=== PATIENT | female | born 1965 | race Caucasian/White ===

== ENCOUNTER → 2018-05-15 10:07 | Outpatient (CLI) | payer MEDICARE, SELFPAY ==
--- NOTE | 2018-05-15 10:10 | MM_ITS ---
MM Dig screening mamm BI w/CAD CAD Screening COMPARISON: Digital mammograms with CAD 09/08/2015 and 08/26/2014 INDICATION: There is a history of breast cancer patient maternal aunt. TECHNIQUE: Standard CC and MLO images were obtained. R2 CAD reviewed. FINDINGS: Mild to moderate fibroglandular densities are seen in the central portions of both breasts and the findings are bilateral and symmetrical. There is minimal focal arterial calcification left breast. There is no suspicious lesion and there are no suspicious microcalcifications. There is a stable tiny nodular benign-appearing density near the axillary tail right breast. IMPRESSION: Fibrofatty parenchyma with no suspicious lesion seen BI-RADS Category: 2 Benign Finding(s) RECOMMENDED FOLLOW-UP: 1YR - 1 YEAR FOLLOW-UP (A letter has been sent to the patient regarding results of the study.)
== END ==
PROVIDERS: PCP Obstetrics & Gynecology; Visit Provider Obstetrics & Gynecology
DX: Z12.31 Encounter for screening mammogram for malignant neoplasm of breast (principal)
CPT/HCPCS: 77067

== ENCOUNTER → 2018-11-27 15:23 | Outpatient (CLI) | payer MEDICARE, SELFPAY ==
--- NOTE | 2018-11-27 15:31 | US_ITS ---
US transvaginal HISTORY: ITS.REASON: POSTMENOPAUSAL BLEEDING ORDERING PHYSICIAN: Luca Butterfield MD PATIENT AGE: 53 years Comparison: None FINDINGS: There is been a prior hysterectomy. There is a small cyst measuring 8 x 5 mm in the region of the vaginal cuff. No pelvic mass or adnexal mass or pelvic fluid collection evident. IMPRESSION: Small cyst in the vaginal cuff otherwise negative pelvic ultrasound status post complete hysterectomy
== END ==
PROVIDERS: PCP Family Medicine; Visit Provider Obstetrics & Gynecology
DX: N95.0 Postmenopausal bleeding (principal)
CPT/HCPCS: 76830

== ENCOUNTER → 2018-12-11 14:46 | Outpatient (CLI) | payer MEDICARE, SELFPAY ==
--- NOTE | 2018-12-11 | ECG_ITS ---
APPROVED REPORT Exam: Resting ECG HR:58 bpm ECG Measurements Heart Rate 58 AXES FL 150 P 60 QRSd 88 QRS 64 QT 440 T 43 QTc 431 <Conclusion> Sinus bradycardia ST abnormality, ? electrolyte disturbance Abnormal ECG Electronically signed by : Yuri Manjarrez, 12/12/2018 17:40:32
[2018-12-11 14:51] LABS: Microscopic, Urine URINE MICROSCOPIC (MICROSCOPIC)
--- NOTE | 2018-12-11 15:07 | XR_ITS ---
PROCEDURE: XR CHEST 2V CLINICAL HISTORY: HTN,SPASMS Hypertension COMPARISON: No exams were available for comparison FINDINGS: The cardiomediastinal silhouette and pulmonary vascularity are within normal limits. The lungs are clear without infiltrates, suspicious nodules, or pleural effusions. There is a mild pectus deformity with some obscuration of the right heart border IMPRESSION: No acute findings. Dictated by: Phil Sumner MD 12/11/2018 15:20 Signed by: <Electronically signed by Phil Sumner MD in [place]> 12/11/2018 15:20
[2018-12-11 15:17] LABS: Basophils % 0.1 % (0.1-2.0); Eosinophils # 0.1 K/mm3 (0.0-0.4); Hematocrit 44.2 % (37.0-47.0); Hemoglobin 14.5 g/dL (12.2-16.2); Lymphocytes # 1.6 K/mm3 (0.7-4.5); Lymphocytes % 26.5 % (10-50); Mean Corpuscular HGB Conc 32.9 g/dL (31.8-35.4); Mean Corpuscular Hemoglobin 25.4 pg (27.0-31.2); Mean Corpuscular Volume 77.1 fl (81-99); Monocytes # 0.3 K/mm3 (0.1-1.0); Monocytes % 5.2 % (1.7-9.3); Neutrophils # 4.1 K/mm3 (1.8-7.8); Neutrophils % 67.2 % (37.0-80.0); Platelet Count 301 K/mm3 (142-424); Red Blood Count 5.73 M/mm3 (4.20-5.40); Red Cell Distribution Width 14.2 % (11.5-17.5); White Blood Count 6.2 K/mm3 (4.8-10.8)
[2018-12-11 15:40] LABS: Appearance,Urine CLEAR (Clear); Bilirubin,Urine Negative (Negative); Blood, Urine 2+ (Negative); Color,Urine YELLOW (Yellow); Glucose,Urine (UA) Negative (Negative); Ketones,Urine Negative (Negative); Leukocyte Esterase,Urine 2+ (Negative); Nitrate,Urine Negative (Negative); PH,Urine 7.5 (5.0-8.5); Protein,Urine Negative (Negative)
[2018-12-11 15:58] LABS: RBC,Urine Occasional #/hpf (0-3)
[2018-12-11 16:00] LABS: Bacteria,Urine Trace /lpf
[2018-12-11 17:36] LABS: Alanine Aminotransferase 20 U/L (12-78); Albumin Level 4.3 gm/dL (3.4-5.0); Albumin/Globulin Ratio 1.7 (1.1-1.8); Alkaline Phosphatase 98 U/L (46-116); Anion Gap 7.7 mEq/L (5-15); Aspartate Amino Transferase 19 U/L (15-37); Bilirubin,Total 0.5 mg/dL (0.2-1.0); Blood Urea Nitrogen 17 mg/dL (7-18); Calcium 9.2 mg/dL (8.5-10.1); Carbon Dioxide 31 mmol/L (21.0-32.0); Chloride 102 mmol/L (98-107); Creatinine,Serum 0.93 mg/dL (0.55-1.02); Estimated Glomerular Filt Rate 64 ml/min (>60); GFR (African American) 77 ML/MIN (>60); Globulin 2.5 gm/dl (1.3-3.2); Glucose 87 mg/dL (74-106); Sodium 138 mmol/L (136-145); Total Protein,Serum 6.8 gm/dL (6.4-8.2)
[2018-12-11 17:44] LABS: Potassium 2.7 mmoL/L (3.5-5.1)
== END ==
PROVIDERS: Visit Provider Obstetrics & Gynecology
DX: Z01.818 Encounter for other preprocedural examination (principal); N80.9 Endometriosis, unspecified; R82.90 Unspecified abnormal findings in urine
CPT/HCPCS: 36415; 71046; 80053; 81001; 85025; 87086; 93005

== ENCOUNTER → 2019-01-09 15:05 | Outpatient (CLI) | payer MEDICARE, SELFPAY ==
[2019-01-09 16:45] LABS: Anion Gap 14.3 mEq/L (5-15); Blood Urea Nitrogen 15 mg/dL (7-18); Calcium 9.3 mg/dL (8.5-10.1); Carbon Dioxide 26 mmol/L (21.0-32.0); Chloride 102 mmol/L (98-107); Creatinine,Serum 0.89 mg/dL (0.55-1.02); Estimated Glomerular Filt Rate 67 ml/min (>60); GFR (African American) 81 ML/MIN (>60); Glucose 107 mg/dL (74-106); Potassium 3.3 mmoL/L (3.5-5.1); Sodium 139 mmol/L (136-145)
== END ==
PROVIDERS: Visit Provider Obstetrics & Gynecology
DX: Z01.818 Encounter for other preprocedural examination (principal); N80.9 Endometriosis, unspecified
CPT/HCPCS: 36415; 80048

== ENCOUNTER → 2020-12-09 10:37 | Outpatient (CLI) | payer MEDICARE, SELFPAY ==
--- NOTE | 2020-12-09 10:37 | MM_ITS ---
PROCEDURE: MM DIG SCREENING MAMM BI W/CAD Digital Breast Tomosynthesis Included CLINICAL INDICATION: screening COMPARISON: MG DMSB DIG MAMM-SCREEN ROSALIND from 08/26/2014 MG DMSB DIG MAMM-SCREEN ROSALIND from 09/08/2015 [facility] MM Dig screening mamm BI w/CAD from 05/15/2018 TECHNIQUE: Standard CC and MLO images and 3D Tomosynthesis was obtained. R2 CAD reviewed. FINDINGS: Average fibroglandular tissue. Benign-appearing nodules and calcifications unchanged.No suspicious appearing mass, malignant-appearing microcalcification, architectural distortion, or skin thickening.. No significant change IMPRESSION: Benign findings. No change with no evidence of malignancy BI-RAD Category: 2 Benign Finding FOLLOW-UP: 1 YR 1 Year Follow-up (A letter has been sent to the patient regarding results of the study.) Dictated by: Phil Sumner MD 12/15/2020 08:55 Phil Sumner MD in [place] 12/15/2020 08:55
== END ==
PROVIDERS: PCP Nurse Practitioner Family; Visit Provider Obstetrics & Gynecology
DX: Z12.31 Encounter for screening mammogram for malignant neoplasm of breast (principal)
CPT/HCPCS: 77063; 77067

== ENCOUNTER 2023-08-30 12:13 | Emergency (ER) | payer MEDICARE, SELFPAY ==
[2023-08-30 12:14] VITALS: BP 114/73; PULSE 60; RESP 16; TEMP 36.6; O2SAT 99; BMI 22.3
[2023-08-30 12:19] VITALS: BP 114/73; PULSE 59; O2SAT 99
--- NOTE | 2023-08-30 12:32 | ECG_ITS ---
APPROVED REPORT Exam: Resting ECG HR:57 bpm ECG Measurements Heart Rate 57 AXES SD 172 P 56 QRSd 73 QRS 67 QT 435 T 31 QTc 428 Conclusion SINUS BRADYCARDIA BORDERLINE ECG UNCONFIRMED REPORT Electronically signed by : Vikram Rasheed, 08/30/2023 15:04:09
--- NOTE | 2023-08-30 13:01 | ED_ITS ---
Discharge Plan Disposition Patient Disposition: Home, Self-Care Prescriptions Prescriptions: No Action aripiprazole [Abilify] 5 mg tablet 5 mg PO QHS Qty: 30 1RF diazepam [Valium] 2 mg tablet 2 mg PO HS PRN (Reason: anxiety) Qty: 30 1RF oxycodone 5 mg capsule 5 mg PO Q4-6H PRN (Reason: back pain) isosorbide mononitrate 30 mg tablet extended release 24 hr 30 mg PO DAILY topiramate 100 mg capsule,sprinkle,ER 24hr 300 mg PO DAILY levothyroxine 200 mcg tablet 200 mcg PO DAILY tizanidine 4 mg capsule 4 mg PO TID PRN (Reason: back pain) estradiol valerate 20 mg/mL oil 30 mg IM Q4W ropinirole 0.25 mg tablet 0.25 mg PO TID potassium chloride 20 mEq tablet,ER particles/crystals 20 meq PO DAILY Qty: 30 0RF hydrochlorothiazide 25 MG tablet 25 mg PO DAILY Referrals Follow up/Referrals: Prema MARIE [Primary Care Provider] - See instructions Activity Restrictions/Add. Instructions Additional Instructions/Restrictions: Your altered mental status that has resolved over time is most likely secondary to polypharmacy which would include your opioid pain medication tizanidine and benzodiazepine medication. I would strongly encourage you to discuss with your primary care doctor discontinuing or decreasing these medications. Additionally you are dehydrated most likely from gastrointestinal losses from your chronically loose stool. Please continue to hydrate yourself with fluids at home and return with any worsening symptoms. Clinical Impressions Clinical Impression: Polypharmacy, Acute dehydration, Encephalopathy acute, Volume depletion, gastrointestinal loss Discharge ED Provider: Brandon Rasheed General Adult HPI General Chief complaint: Weakness Stated complaint: BP 80/62 passed out saturday Time Seen by Provider: 08/30/23 12:30 Mode of Arrival: Wheelchair Source of Information: Patient Limitations: No Limitations Description of Symptoms (Recalled from ER Triage Doc. by RN): Patient brought to our emergency room by an employee of Dr. Dudley's office. States the patient came in for her emgality injection and she was weak, pale and had a low blood pressure. History of Present Illness HPI narrative: Patient is a 58-year-old female who was sent to the emergency room today due to decreased levels of alertness while at her doctor's office. She went to Dr. 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 Of note the patient is on chronic opioids for back pain also is on tizanidine and states that she recently was started on clonazepam for depression and anxiety. Related Data Home Medications Medication Instructions Recorded Confirmed isosorbide mononitrate 30 mg 30 mg PO DAILY heart. 05/05/18 05/30/21 tablet,extended release 24 hr levothyroxine 200 mcg tablet 200 mcg PO DAILY thyroid 05/05/18 05/30/21 oxycodone 5 mg capsule 5 mg PO Q4-6H PRN back pain 05/05/18 05/30/21 tizanidine 4 mg capsule 4 mg PO TID PRN back pain 05/05/18 05/30/21 topiramate 100 mg capsule 300 mg PO DAILY neruopathy 05/05/18 05/30/21 sprinkle,extended release 24 hr estradiol valerate 20 mg/mL 30 mg IM Q4W hormone 08/12/18 05/30/21 intramuscular oil hydrochlorothiazide 25 mg tablet 25 mg PO DAILY Fluid 12/17/18 05/30/21 ropinirole 0.25 mg tablet 0.25 mg PO TID 11/22/20 05/30/21 Previous Rx's Medication Instructions Recorded potassium chloride 20 mEq 20 meq PO DAILY Supplement #30 tabs 12/25/18 tablet,extended release(part/cryst) aripiprazole 5 mg tablet (Abilify) 5 mg PO QHS #30 tabs 05/30/21 diazepam 2 mg tablet (Valium) 2 mg PO HS PRN anxiety #30 tabs 05/30/21 Allergies Allergy/AdvReac Type Severity Reaction Status Date / Time No Known Allergies Allergy Verified 05/30/21 08:52 [facility] Disclaimer: The information contained in this section may have been updated after the patient was seen, as this information can be updated by other users. Social History Smoking Status: Unknown if ever smoked second hand exposure: Yes alcohol intake: current alcohol intake frequency: holidays/special occasions only substance use type: denies use and marijuana current occupational status: unemployed and disabled Travel in the last 8 weeks: None household members: significant other housing: apartment number of children: 2 current occupational exposures/hazards: No caffeine: Yes ROS Obtained: Yes All systems reviewed & no additional complaints except as documented Physical Exam General General appearance: appears intoxicated (Pupils are pinpoint mildly depressed respiratory effort and lethargic but able to be aroused) Respiratory Respiratory exam: Present normal lung sounds bilaterally; Absent respiratory distress Cardiovascular Cardiovascular exam: Present regular rate; Absent normal rhythm Neurological Exam Neurological exam: Present alert and oriented X3 Expanded Neurological Exam Coma scale eye opening: To pain Coma scale motor response: Obeys commands Coma scale verbal response: Oriented Coma scale total: 13 Medical Decision Making Papo Inquiry Pt receiving controlled substance: No Vital Signs: 08/30/23 12:14 08/30/23 12:19 08/30/23 13:31 Temperature 97.9 F Temperature Source Oral Pulse Rate 59 L 56 L Pulse Rate [Radial] 60 Respiratory Rate 16 22 Blood Pressure 114/73 103/71 L Blood Pressure [Right Arm] 114/73 Blood Pressure Mean [Right Arm] 86 Blood Pressure Source [Right Arm] Automatic Cuff Blood Pressure Position [Right Arm] Sitting 02 Sat by Pulse Oximetry 99 99 100 Oxygen Delivery Method Room Air Room Air Lab Data Lab results reviewed: Yes I reviewed the patient's lab results. Lab Results 08/30/23 12:45: VBG pH 7.31, VBG pCO2 28.4 L, VBG pO2 59.5 H, VBG HCO3 13.9 L, V BG Total CO2 14.8 L, VBG O2 Saturation 87.2 H, VBG Base Excess -12.4 L, VBG Lactic Acid 2.7 H, Sodium 141, Potassium 4.0, Chloride 113 H, Carbon Dioxide 16 L, Anion Gap 16.0 H, BUN 15, Creatinine 0.90, Estimated Creat Clear 63, Estimated GFR 65, Est GFR ( Amer) 78, Glucose 113 H, Calcium 9.1, Magnesium 1.9, Total Bilirubin 0.4, AST 33, ALT 22, Alkaline Phosphatase 72, Troponin I < 0.01, Total Protein 7.0, Albumin 4.5, Globulin 2.5, Albumin/Globulin Ratio 1.8, Plasma/Serum Alcohol < 10 08/30/23 13:11: Urine Opiates Screen Negative, Urine Methadone Screen Negative, Ur Barbituates Screen Negative, Ur Phencyclidine Scrn Negative, Ur Amphetamines Screen Negative, U Benzodiazepines Scrn Negative, Urine Cocaine Screen Negative, U Marijuana (THC) Screen Negative 08/30/23 13:29: WBC 6.4, RBC 3.59 L, Hgb 10.1 L, Hct 30.9 L, MCV 86.2, MCH 28.1, MCHC 32.6, RDW 16.9, Plt Count 295, MPV 9.2, Neut % (Auto) 65.7, Lymph % (Auto) 25.5, Trigg % (Auto) 6.9, Eos % (Auto) 1.3, Baso % (Auto) 0.7, Neut # (Auto) 4.2, Lymph # (Auto) 1.6, Trigg # (Auto) 0.4, Eos # (Auto) 0.1, Baso # (Auto) 0.1 08/30/23 13:29 08/30/23 12:45 Orders (Tests/Meds): ED MEDICATIONS Discontinued Medications Generic Name Dose Route Start Last Admin Trade Name Freq PRN Reason Stop Dose Admin Lactated Ringer's 1,000 mls @ 999 mls/hr 08/30/23 12:45 08/30/23 13:36 Lactated Ringer's 1000 Ml Bag IV 08/30/23 13:45 999 mls/hr .Q1H1M KEYUR Administration ORDERS Category Date Time Status CBC w/Auto Diff [Complete Blood Count Auto Diff] Stat Lab 08/30/23 13:29 Completed CMP [Comprehensive Metabolic Panel] Stat Lab 08/30/23 12:45 Results Ethanol [Ethyl Alcohol] Stat Lab 08/30/23 12:45 Completed Magnesium Stat Lab 08/30/23 12:45 Results TSH [Thyroid Stimulating Hormone] Stat Lab 08/30/23 12:45 Results Trop I [Troponin I] Stat Lab 08/30/23 12:45 Results Troponin I Q3H Lab 08/30/23 15:45 Ordered Troponin I Q3H Lab 08/30/23 18:45 Ordered UDS [Drug Screen,Urine] Stat Lab 08/30/23 13:11 Completed Venous Blood Gas Stat RT 08/30/23 12:45 Completed ECG Data Tracing #1: I reviewed this ECG and interpreted as documented below: Ventricular rate of 57 normal axis no acute ischemic changes no significant conduction abnormalities Medical Decision Narrative: Patient is a 58-year-old female presents today with decreased level of alertness with a nonfocal neurologic exam once aroused with painful stimulation. Her pupils are pinpoint and she has mildly depressed respiratory effort but has normal oxygen saturation is able to be aroused and interacts normally once she is awake. This appears to be polypharmacy secondary to her opiates benzos and tizanidine use. Will observe her for several hours until her drugs have had a chance to metabolize. I have very explicitly told her that she needs to follow- up with primary care doctor to decrease the medications that she is on is there almost certainly what is the cause of her symptoms today. Will check basic electrolytes and give IV fluids and an EKG and observe her until her mental status is improved. ED observation order has been placed. Reassessment 2:29 PM patient looks much better is awake alert oriented GCS of 15 normal neurologic exam vital signs improved most recent blood pressures 128/72. She states he feels much better after the IV fluids. She did have an elevated anion gap as well as a depressed bicarb after further questioning she has had significant GI losses chronically from some the medications that she takes. She was most likely dehydrated which exacerbated some the polypharmacy as stated above. Of note she had a pattern of metabolic acidosis with compensatory respiratory alkalosis she specifically has not been taking any aspirin or salicylates did not look into this further. No evidence of endorgan damage such as acute renal insufficiency etc. She looked and felt great after IV fluids follow-up with primary care doctor return with any worsening symptoms. Critical Care Critical Care Time Critical Care Time: Yes Attestation: On 08/30/23, the high probability of a clinically significant, sudden or life threatening deterioration of the following system(s) required my full and direct attention, intervention and personal management. The time I documented below is in addition to time spent performing reported procedures but includes the following listed in this critical care notation. Total Time Total Critical Care Time: 35
[2023-08-30 13:04] LABS: Chloride 113 mmol/L (98-107); Sodium 141 mmol/L (136-145)
[2023-08-30 13:06] LABS: Alanine Aminotransferase 22 U/L (12-78); Aspartate Amino Transferase 33 U/L (14-36); Blood Urea Nitrogen 15 mg/dl (7-17); Creatinine Clearance Estimated 63 mL/min (50-200); Estimated Glomerular Filt Rate 65 ml/min (>60); GFR (African American) 78 ML/MIN (>60)
[2023-08-30 13:07] LABS: Albumin Level 4.5 g/dl (3.5-5.0); Albumin/Globulin Ratio 1.8 (1.1-1.8); Alkaline Phosphatase 72 U/L (38-126); Bilirubin,Total 0.4 mg/dl (0.2-1.3); Calcium 9.1 mg/dl (8.4-10.2); Carbon Dioxide 16 mmol/L (22.0-30.0); Globulin 2.5 g/dL (1.3-3.2); Glucose 113 mg/dl (74-100); Magnesium 1.9 mg/dl (1.6-2.3)
[2023-08-30 13:22] LABS: Troponin I < 0.01 ng/ml (0.00-0.034)
[2023-08-30 13:31] VITALS: BP 103/71; PULSE 56; RESP 22; O2SAT 100
[2023-08-30 13:31] LABS: VBG Base Excess -12.4 mmol/L (-2.4-2.3); VBG HCO3 13.9 mmol/L (23-30); VBG Oxygen Saturation 87.2 % (50-70); VBG PCO2 28.4 mmol/L (35-51); VBG PH 7.31 mmol/L (7.31-7.41); VBG PO2 59.5 mmol/L (28-40); VBG Total CO2 14.8 mmol/L (23-27)
[2023-08-30 13:32] LABS: Lactate Venous 2.7 mmol/L (0.4-2.0)
[2023-08-30] MEDS: LACTATED RINGERS 1000ML 1,000 ML 999 ML IV (13:36)
[2023-08-30 13:41] LABS: Barbiturates Screen,Urine Negative ng/ml (<200)
[2023-08-30 13:42] LABS: Amphetamine/Metha Screen,Urine Negative ng/ml (<1000); Benzodiazepines Screen,Urine Negative ng/ml (<200)
[2023-08-30 13:43] LABS: Cannabinoid Screen,Urine Negative ng/ml (<50)
[2023-08-30 13:44] LABS: Cocaine Screen,Urine Negative ng/ml (<300); Methadone Screen,Urine Negative ng/ml (<300)
[2023-08-30 13:45] LABS: Opiate Screen,Urine Negative ng/ml (<300)
[2023-08-30 13:46] LABS: Phencyclidine Screen,Urine Negative ng/ml (<25)
[2023-08-30 13:47] LABS: Basophils # 0.1 K/mm3 (0-0.2); Basophils % 0.7 % (0.1-2.0); Eosinophils # 0.1 K/mm3 (0.0-0.4); Eosinophils % 1.3 % (0.1-12.0); Hematocrit 30.9 % (37.0-47.0); Hemoglobin 10.1 g/dL (12.2-16.2); Lymphocytes # 1.6 K/mm3 (0.7-4.5); Lymphocytes % 25.5 % (10-50); Mean Corpuscular HGB Conc 32.6 g/dL (31.8-35.4); Mean Corpuscular Hemoglobin 28.1 pg (27.0-31.2); Mean Corpuscular Volume 86.2 fl (81-99); Mean Platelet Volume 9.2 fl (7.4-10.4); Monocytes # 0.4 K/mm3 (0.1-1.0); Monocytes % 6.9 % (1.7-9.3); Neutrophils # 4.2 K/mm3 (1.8-7.8); Neutrophils % 65.7 % (37.0-80.0); Platelet Count 295 K/mm3 (142-424); Red Blood Count 3.59 M/mm3 (4.20-5.40); Red Cell Distribution Width 16.9 % (11.5-17.5); White Blood Count 6.4 K/mm3 (4.8-10.8)
[2023-08-30 13:54] LABS: Ethyl Alcohol < 10 mg/dl (0-10)
[2023-08-30 14:37] VITALS: BP 143/91; PULSE 60; RESP 16; TEMP 36.7; O2SAT 96
[2023-08-30 17:33] LABS: Reflex Lactic Add Lactic Reflex
== END 2023-08-30 14:38 | disposition home or self-care (01) ==
PROVIDERS: Emergency Provider Student in an Organized Health Care Education/Training Program; PCP Internal Medicine
DX: E86.0 Dehydration (principal); R00.1 Bradycardia, unspecified; G93.41 Metabolic encephalopathy; E86.9 Volume depletion, unspecified; Z79.899 Other long term (current) drug therapy
CPT/HCPCS: 80053; 80307; 82803; 83735; 84443; 84484; 85025; 93005; 96360; 99285

== ENCOUNTER 2023-09-06 10:12 | Outpatient (CLI) | payer MEDICARE, SELFPAY ==
--- NOTE | 2023-09-06 10:17 | MM_ITS ---
PROCEDURE INFORMATION: Exam: MG Bilateral Screening 3D Mammography Exam date and time: 09/06/2023 10:22 AM Age: 58 years old Clinical indication: Screening examination TECHNIQUE: Imaging protocol: Bilateral Screening tomosynthesis and 2D mammography including computer-aided detection (CAD) when performed. COMPARISON: 1. MG MM DIG SCREENING MAMM BI W/CAD 12/09/2020 10:37 AM 2. MG [facility] MM Dig screening mamm BI w/CAD 05/15/2018 10:26 AM FINDINGS: MAMMOGRAPHY: Breast composition: There are scattered areas of fibroglandular density. Mass: None. Architectural distortion: None. Calcifications: No suspicious calcifications. Asymmetric density: None. Skin thickening: None. Axillary adenopathy: None. IMPRESSION: No mammographic evidence of malignancy. Annual screening is recommended unless otherwise clinically indicated. ASSESSMENT: BI-RADS Category 1: Negative
== END 2023-09-06 23:59 | disposition home or self-care (01) ==
LOC: RAD 10:14
PROVIDERS: PCP Nurse Practitioner; Visit Provider Nurse Practitioner
DX: Z12.31 Encounter for screening mammogram for malignant neoplasm of breast (principal)
CPT/HCPCS: 77063; 77067

== ENCOUNTER 2024-09-11 14:29 | Outpatient (CLI) | payer MEDICARE, SELFPAY ==
[2024-09-11] MEDS: SODIUM CHLORIDE 0.9% 10ML SYR (RAD ONLY) 10 ML IV (15:23)
[2024-09-11] MEDS: GADOTERIDOL INJ 20ML SYRINGE 12 ML IV (15:23)
--- NOTE | 2024-09-11 15:30 | MR_ITS ---
FINAL REPORT TECHNIQUE: Multiplanar MR, without and with gadolinium enhancement CLINICAL HISTORY: hc of CVA/Migraines FALL X 3 MONTHS AGO COMPARISON: None FINDINGS: Diffusion sequences show no signal abnormality to indicate acute infarct. There are a few punctate foci of increased signal in the frontal white matter, that are compatible in appearance with minimal ischemic microvascular disease. No mass, hemorrhage or edema is seen. Ventricles are normal. Major vascular flow voids are intact. Following contrast administration, no mass or abnormal enhancement is seen. IMPRESSION: 1. No acute infarct or enhancing mass. 2. Few punctate foci of increased signal in the frontal white matter, consistent with minimal ischemic microvascular change. Reviewed, Interpreted and Dictated by Cayla Edgar MD Transcribed by Monie Luna Authenticated and [facility]
== END 2024-09-11 23:59 | disposition home or self-care (01) ==
LOC: RAD 14:30
PROVIDERS: PCP Nurse Practitioner; Visit Provider Specialist
DX: I69.898 Other sequelae of other cerebrovascular disease (principal); G93.40 Encephalopathy, unspecified; G43.909 Migraine, unspecified, not intractable, without status migrainosus
CPT/HCPCS: 70553; A9576